=== PATIENT | female | born 1965 | race African-American/Black ===

== ENCOUNTER 2019-01-15 12:43 | Emergency (ER) | payer OTHER ==
[~2019-01-15] VITALS: Ht 149.9 cm; Wt 66.2 kg
[2019-01-15] MEDS ORDERED: SULF1TAB24 PO (13:14)
--- NOTE | 2019-01-15 13:15 | PHYS DOC ---
Past Medical History Past Medical History: No Pertinent History Additional Past Surgical Histo: x2 Alcohol Use: None Drug Use: None Social History Narrative: Currently in investigational trial for weight loss Adult General Chief Complaint Chief Complaint: ABSCESS HPI HPI 53-year-old female presents to ER for complaints of abscess on her left outer buttock. Pt denies any change in bowel pattern, urinary symptoms, or fever. She denies nausea or vomiting. Review of Systems Review of Systems Constitutional: Denies fever or chills [] Eyes: Denies change in visual acuity, redness, or eye pain [] HENT: Denies nasal congestion or sore throat [] Respiratory: Denies cough or shortness of breath [] Cardiovascular: No additional information not addressed in HPI [] GI: Denies abdominal pain, nausea, vomiting, bloody stools or diarrhea [] : Denies dysuria or hematuria [] Musculoskeletal: Denies back pain or joint pain [] Integument: Denies rash or skin lesions [] Neurologic: Denies headache, focal weakness or sensory changes [] Endocrine: Denies polyuria or polydipsia [] All other systems were reviewed and found to be within normal limits, except as documented in this note. Physical Exam Physical Exam Constitutional: Well developed, well nourished, no acute distress, non-toxic appearance. [] HENT: Normocephalic, atraumatic, oropharynx moist, nose normal. [] Eyes: Pupils equal, conjunctiva normal, no discharge. [] Neck: Normal range of motion, supple Cardiovascular:Heart rate regular rhythm, no murmur [] Lungs & Thorax: Bilateral breath sounds clear to auscultation. Resp. equal/nonlabored Abdomen: Bowel sounds normal, soft, no tenderness Skin: Warm, dry, no rash. [] Back: No tenderness, no CVA tenderness. [] Extremities: No tenderness, no cyanosis, no clubbing, ROM intact, no edema. [] Neurologic: Alert and oriented X 3, normal motor function, normal sensory function, no focal deficits noted. [] Psychologic: Affect normal, judgement normal, mood normal. [] On exam pt has abscess mid outer lt buttock- with induration around site. Small amt of drainage- there is area of fluctuation at site where purulent drainage is. No bleeding/red streaking from site. No inner buttock sores or tenderness around rectum. No external hemorrhoids, rash, lesions. Current Patient Data Vital Signs Vital Signs Date Time Temp Pulse Resp B/P (MAP) Pulse Ox O2 Delivery O2 Flow Rate FiO2 01/15/19 13:23 88 18 95/54 (68) 100 Room Air 01/15/19 12:52 97.6 97.6 EKG EKG [] Radiology/Procedures Radiology/Procedures [] Course & Med Decision Making Course & Med Decision Making Discussed plans for I&D and pt is refusing to have procedure done as pt does have area of fluctuation at abscess site lt outer buttock. She reports she is wanting Rx for antibiotics and will f/u with her PCP in 2 days for wound recheck- sooner if sxs worsen. She verbalized understanding of benefits from I&D however following discussion on benefits from the procedure she is still refusing to have that done. Will prescribe Bactrim with discharge paperwork. Patient advised on use of warm compress to affected area. Education provided on signs and symptoms to return to ER. Discharge instructions were discussed. Pt to f/u with her PCP for wound re-eval and further care. Dragon Disclaimer Dragon Disclaimer This electronic medical record was generated, in whole or in part, using a voice recognition dictation system. Departure Departure Impression: Primary Impression: Abscess Disposition: 01 HOME, SELF-CARE Condition: STABLE Patient Instructions: Abscess Additional Instructions: Tylenol and/or ibuprofen as needed for pain as directed on container. Warm compress to left buttock out wound site every 3-4 hours for 20-30 minutes at a time. Follow-up with your primary care physician in 2 days for wound reevaluation and further care. Scripts Sulfamethoxazole/Trimethoprim (BACTRIM DS TABLET) 1 Each Tablet 1 TAB PO BID, #14 TAB 0 Refills Prov: CHIP WALTER APRN 01/15/19 CHIP WALTER APRN Jan 15, 2019 13:15
[2019-01-15 13:23] VITALS: BP 95/54
== END 2019-01-15 13:25 | disposition home or self-care (01) ==
LOC: ER 12:43
DX: L02.31 Cutaneous abscess of buttock (principal)
CPT/HCPCS: 99283